=== PATIENT | male | born 1995 | race Caucasian/White ===

== ENCOUNTER 2023-10-14 10:52 | Emergency (ER) | payer OTHER ==
[~2023-10-14] VITALS: Ht 180.3 cm; Wt 78.0 kg
[2023-10-14] MEDS: TETanus/Pertussis (Acell)/Diphther VAC/PF (Tdap-Adult) 0.5ml syringe IMVAC ONE (12:47)
[2023-10-14] MEDS: LIDOcaine 1% 30ml preserv. free vial IJ ONE (12:48)
[2023-10-14] MEDS: ibuprofen tablet 400 MG TABLET PO ONE (14:26)
[2023-10-14 14:27] VITALS: BP 122/65; PULSE 78; RESP 16; TEMP 98.3; O2SAT 98
== END 2023-10-14 14:28 | disposition home or self-care (01) ==
LOC: ER 10:52
DX: S61.213A Laceration without foreign body of left middle finger without damage to nail, initial encounter (principal); Z88.0 Allergy status to penicillin; W45.8XXA Other foreign body or object entering through skin, initial encounter; Y93.89 Activity, other specified; Y92.89 Other specified places as the place of occurrence of the external cause; Y99.8 Other external cause status
CPT/HCPCS: 12001; 90471; 90715; 99283; A6222; J7030; A6258; A6449